=== PATIENT | female | born 1965 | race Caucasian/White ===

== ENCOUNTER → 2020-01-31 17:22 | Outpatient (CLI) | payer OTHER, MEDICAID, SELFPAY ==
--- NOTE | 2020-01-31 17:55 | DI.MG.S_ITS ---
Patient Name: KASI PINEDA date: 1965 Sex: F Attending Physician: Iftikhar Indications: Date: 01/31/2020 17:54 At the request of: SONIA STAPLETON Procedure: MM screening mammo BI BILATERAL DIGITAL SCREENING MAMMOGRAM 3D/2D WITH CAD: 01/31/2020 CLINICAL: Routine screening. Baseline by default. No prior exams were available for comparison. The tissue of both breasts is heterogeneously dense. This may lower the sensitivity of mammography. Current study was also evaluated with a Computer Aided Detection (CAD) system. There is an oval equal density focal asymmetry with an indistinct margin in the right breast at 6 o'clock anterior depth. No other significant masses, calcifications, or other findings are seen in either breast. IMPRESSION: INCOMPLETE: NEEDS ADDITIONAL IMAGING EVALUATION The oval equal density focal asymmetry in the right breast is indeterminate. Mediolateral and spot compression views as well as additional views with possible ultrasound are recommended. This exam was interpreted at Station ID: [id number]. NOTE: For mammograms, a report in lay terms will be sent to the patient. Approximately 15% of breast malignancies will not be visualized mammographically. In the management of a palpable breast mass, a negative mammogram must not discourage biopsy of a clinically suspicious lesion. Electronically Signed By: Damien anthony/radha:02/03/2020 07:54:58 letter sent: Additional Imaging Needed Continued Report - Page 2 of 2 Patient Name: KASI PINEDA date: 1965 Sex: F Attending Physician: Iftikhar Indications: Date: 01/31/2020 17:54 At the request of: SONIA STAPLETON Procedure: MM screening mammo BI ACR BI-RADS Category 0: Incomplete [id number]
== END ==
PROVIDERS: Referring Provider Physician Assistant; Visit Provider Physician Assistant
DX: Z12.31 Encounter for screening mammogram for malignant neoplasm of breast (principal)
CPT/HCPCS: 77063; 77067

== ENCOUNTER → 2020-02-25 12:31 | Outpatient (CLI) | payer OTHER, MEDICAID, SELFPAY ==
--- NOTE | 2020-02-25 | DI.US.S_ITS ---
PROCEDURE: US BREAST RT LIMITED COMPARISON: None. INDICATIONS: ABNORMAL MAMMOGRAM FINDINGS: IMPRESSION: Dictated by: Armand Quintanilla M.D. on 02/25/2020 at 15:06 Approved by: Armand Quintanilla M.D. on 02/25/2020 at 15:08
--- NOTE | 2020-02-25 | DI.MG.S_ITS ---
UNILATERAL RIGHT DIGITAL DIAGNOSTIC MAMMOGRAM 3D/2D WITH ADDITIONAL VIEWS: 02/25/2020 CLINICAL: Additional evaluation requested from prior study. Comparison is made to exam dated: 01/31/2020 [facility]. The tissue of right breast is heterogeneously dense. This may lower the sensitivity of mammography. There is a 0.8 cm x 0.5 cm oval asymmetry in the right breast at 6 o'clock anterior depth that persists. No other significant masses or calcifications are seen in the breast. IMPRESSION: INCOMPLETE: NEEDS ADDITIONAL IMAGING EVALUATION The 0.8 cm x 0.5 cm oval asymmetry in the right breast is indeterminate. An ultrasound is recommended. US will be performed and dictated separately. This exam was interpreted at Station ID: [id number]. NOTE: For mammograms, a report in lay terms will be sent to the patient. Approximately 15% of breast malignancies will not be visualized mammographically. In the management of a palpable breast mass, a negative mammogram must not discourage biopsy of a clinically suspicious lesion. Electronically Signed By: Armand Quintanilla acr/:02/25/2020 13:37:40 letter sent: Additional Imaging Needed ACR BI-RADS Category 0: Incomplete 3340F
--- NOTE | 2020-02-25 13:48 | DI.US.S_ITS ---
Procedure: US breast RT limited ULTRASOUND OF RIGHT BREAST: 02/25/2020 CLINICAL: Patient returns today to evaluate a focal asymmetry in the right breast. Comparison is made to exams dated: 02/25/2020 mammogram and 01/31/2020 mammogram - [facility]. Color flow and Doppler ultrasound of the right breast were performed. There is a benign 0.4 cm x 0.3 cm x 0.6 cm oval cyst in the right breast at 6 o'clock posterior depth. This oval cyst displays posterior acoustic enhancement. IMPRESSION: BENIGN There is no sonographic evidence of malignancy. The 0.4 cm x 0.3 cm x 0.6 cm oval cyst in the right breast likely represents a simple cyst and is benign. Return to annual mammogram screening schedule is recommended. This exam was interpreted at Station ID: [id number]. Electronically Signed By: Armand Quintanilla acr/:02/25/2020 15:08:02 letter sent: Normal Exam Ultrasound BI-RADS: 2 Benign
== END ==
PROVIDERS: Referring Provider Physician Assistant; Visit Provider Physician Assistant
DX: R92.8 Other abnormal and inconclusive findings on diagnostic imaging of breast (principal); N60.01 Solitary cyst of right breast
CPT/HCPCS: 76642; 77065; G0279